=== PATIENT | male | born 1965 | race Caucasian/White ===

== ENCOUNTER 2017-07-06 08:41 | Observation (INO) ==
--- NOTE | 2017-07-06 09:06 | Emergency Department Note ---
Disposition Clinical Impression: Exposure to carbon monoxide Chest pain Qualifiers: Chest pain type: unspecified Qualified Code(s): R07.9 - Chest pain, unspecified Disposition: Admitted As Inpatient Condition: Fair Referrals: NONE,PCP [Primary Care Provider] - Catarino Ayoub [Family Provider] - Forms: ED Satisfaction Letter Time of Disposition: 11:15 General Adult HPI - General Chief complaint: ED Weakness Stated complaint: Weak, BL leg/arm numbness Time Seen by Provider: 07/06/17 08:44 Source: patient Limitations: no limitations Nursing Notes Reviewed: Yes Vital Signs Reviewed: Yes - History of Present Illness HPI Narrative: Alert and oriented nontoxic-appearing 52-year-old male presents for evaluation of generalized weakness, numbness and tingling of the bilateral upper and lower extremities, intermittent dizziness, and was intermittent but brief left-sided chest pain. Symptoms began abruptly at approximately 5:00 AM. He states that he has had intermittent episodes of left-sided chest pain that has been going on for the past 2 weeks however he had not disclose this to his significant other for any other medical professional. He denies any aggravating or alleviating factors for that chest pain. He describes it as sharp in nature and only lasts briefly. 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 He states that last week, his truck at a known exhaust leak that made the cabin smell strongly of exhaust fumes. He states that this has since been resolved and corrected. He states that he did buy a small carbon monoxide detector to place in the cab of his truck. He states that the carbon monoxide detector did begin to alarm around the time of symptom onset.. He denies any fever, chills, nausea, vomiting, abdominal pain, diaphoresis, headache. He does complain of intermittent episodes of blurred vision. He denies any injury or trauma. Pt Subjective Complaint: Dizziness, weakness, numbness and tingling of the upper and lower extremiti Pain Scale: 0 Improves with: nothing Worsens with: nothing Associated symptoms: Reports: chest pain, weakness. Denies: cough, diaphoresis , fever/chills, headaches, nausea/vomiting Treatments Prior to Arrival: none - Related Data Allergies Allergy/AdvReac Type Severity Reaction Status Date / Time No Known Allergies Allergy Verified 07/06/17 10:30 All systems ED: reviewed and negative except as stated. Review of Systems: As Per HPI Constitutional: Reports: as per HPI, weakness. Denies: fever, chills, weight change Eyes: Denies: eye pain, eye discharge, vision change ENT ED: Denies: ear pain, throat pain, dental pain, hearing loss, epistaxis, congestion, dysphagia Cardiovascular: Reports: as per HPI, chest pain. Denies: palpitations, dyspnea on exertion, edema, syncope Respiratory: Denies: cough, dyspnea, wheezes, hemoptysis, stridor Gastrointestinal: Denies: abdominal pain, nausea, vomiting, diarrhea, constipation, hematemesis, melena, hematochezia Genitourinary: Denies: urgency, dysuria, frequency, hematuria Musculoskeletal: Denies: back pain, neck pain, arthralgia, myalgia Integumentary: Denies: rash, abrasion, lesions Neurological: Reports: as per HPI, paresthesias. Denies: headache, weakness, numbness, confusion, abnormal gait, vertigo Psychiatric: Denies: anxiety, depression, suicidal thoughts, homicidal thoughts , auditory hallucinations, visual hallucinations Endocrine: Denies: fatigue Hematological/Lymphatic: Denies: easy bleeding, easy bruising Allergic/Immunologic: Denies: facial swelling, urticaria Past Medical History - Past Medical History Attestation: Yes The following information was validated with the patient. Source: patient, nursing notes reviewed Medical history: Reports: no medical history - Social History Smoking Status: Never smoker Physical Exam - General Limitations: no limitations General appearance: alert, in no apparent distress - Head Head exam: atraumatic, normocephalic, normal inspection - Eye Eye exam: Present: normal appearance, PERRL, EOMI. Absent: nystagmus - ENT ENT exam: mucous membranes moist - Neck Neck exam: Present: normal inspection, full ROM, trachea midline - Chest Chest inspection: Present: normal inspection, symmetric chest wall rise - Cardiovascular Cardiovascular exam: Present: regular rate, normal rhythm, normal heart sounds - Abdominal Exam Abdominal exam: Present: soft, Non-Tender, normal bowel sounds. Absent: tenderness, distention, guarding, rebound, rigidity - Extremities Exam Extremities exam: Present: normal inspection, full ROM. Absent: tenderness, pedal edema - Neurological Exam Neurological exam: Present: alert, oriented X3 - Expanded Neurological Exam Cranial nerves: EOM function (II, III, IV, ): Normal, facial sensation (V): Normal, facial palsy (VII): Normal, spinal accessory function (XI): Normal, tongue deviation (XII): Normal Cerebellar function: finger to nose: Normal, heel to cabrera: Normal Motor strength - LUE: 5/5 Motor strength - RUE: 5/5 Motor strength - LLE: 5/5 Motor strength - RLE: 5/5 Coma Scale Eye Opening: Spontaneous Coma Scale Motor Response: Obeys Commands Coma Scale Verbal Response: Oriented Coma Scale Total: 15 - Psychiatric Psychiatric exam: Present: normal affect, normal mood - Skin Skin exam: Present: warm, dry, intact, normal color Course Course Narrative: 1005: I spoke with the local poison control facility. Poison control recommends 100% oxygen by way of nonrebreather mask until carbon monoxide level is at least less than 10, preferably closer to the 5 Sunny she states the patient should not return to the truck until has been fully evaluated. Poison numerical control lathe operator states that he does not feel that the patient's carbon monoxide level was high enough to cause reactive involvement, as such evidenced by the patient's complaint of left-sided intermittent chest pain for the past 2 weeks. Poison numerical control lathe operator states that she feels that serial troponin testing is warranted in this patient's case. 1128: I spoke with Dr. Junior of the hospitalist services agreed to accept the patient under his services. - Reevaluation(s) Reevaluation #1: The patient states that he feels slightly improved from his initial presentation here after being placed on a nonrebreather mask. Carboxyhemoglobin level dropped from 13.1-11.9. Time: 11:14 Vital Signs Temperature 98.5 F 07/06/17 08:44 Pulse Rate 84 07/06/17 08:44 Respiratory Rate 18 07/06/17 08:44 Blood Pressure 146/113 07/06/17 08:44 O2 Sat by Pulse Oximetry 99 07/06/17 08:44 Temperature 98.5 F 07/06/17 08:44 Pulse Rate 83 07/06/17 09:08 Respiratory Rate 18 07/06/17 08:44 Blood Pressure 124/94 07/06/17 09:08 O2 Sat by Pulse Oximetry 99 07/06/17 08:44 Medical Decision Making - MDM Narrative Medical decision making narrative: The patient states that he did notice symptomatic improvement after exiting his truck, only for symptoms to return once he returned to it. I have discussed this patient's case with Dr. Orozco. Dr. Orozco has had a [id number] evaluation with the patient as well and agrees with the workup. Poison control did recommend serial troponin levels and admission for ACS rule out. I discussed this plan with Dr. Orozco and he agrees. - Medical Records Medical records reviewed: Yes I reviewed the patient's medical records. - Lab Data Lab results reviewed: Yes I reviewed the patient's lab results. Lab results narrative: Laboratory Last Values WBC 10.4 K/mcL (4.3-11.1) 07/06/17 09:00 RBC 5.50 M/mcL (4.19-5.50) 07/06/17 09:00 Hgb 17.7 g/dL (12.9-16.9) H 07/06/17 09:00 Hct 51.2 % (37.5-50.1) H 07/06/17 09:00 MCV 93.1 fL (83.0-100.0) 07/06/17 09:00 MCH 32.2 pg (28.0-33.3) 07/06/17 09:00 MCHC 34.6 g/dL (31.6-35.5) 07/06/17 09:00 RDW 14.2 % (11.5-14.5) 07/06/17 09:00 Plt Count 255 K/mcL (140-400) 07/06/17 09:00 MPV 10.0 fL (9.4-12.4) 07/06/17 09:00 Immature Gran % 0.3 % (0-4) 07/06/17 09:00 Seg Neutrophils % 68.6 % 07/06/17 09:00 Lymphocytes % 21.5 % 07/06/17 09:00 Monocytes % 8.1 % 07/06/17 09:00 Eosinophils % 1.2 % 07/06/17 09:00 Basophils % 0.3 % 07/06/17 09:00 Neutrophils # 7.1 K/mcL (1.6-8.9) 07/06/17 09:00 Lymphocytes # 2.2 K/mcL (0.6-4.6) 07/06/17 09:00 Monocytes # 0.8 K/mcL (0.0-1.3) 07/06/17 09:00 Eosinophils # 0.1 K/mcL (0.0-0.6) 07/06/17 09:00 Basophils # 0.0 K/mcL (0.0-0.2) 07/06/17 09:00 PT 11.1 Seconds (9.4-12.1) 07/06/17 09:00 INR 1.0 07/06/17 09:00 APTT 29.8 Seconds (26.0-36.0) 07/06/17 09:00 ABG pH 7.41 pH Units (7.32-7.45) 07/06/17 10:44 ABG pCO2 40 mmHg (35-45) 07/06/17 10:44 ABG pO2 103 mmHg (85-104) 07/06/17 10:44 ABG HCO3 25 mEq/L (21-27) 07/06/17 10:44 ABG Total CO2 27 mEq/L (20-26) H 07/06/17 10:44 ABG O2 Saturation 98 % (95-98) 07/06/17 10:44 ABG Base Excess 1 mEq/L (-2 to 3) 07/06/17 10:44 Carboxyhemoglobin 11.9 % (0-5) H 07/06/17 10:26 O2 Delivery Device Venti Mask 07/06/17 10:18 Inspired O2 24.0 (1-15=lpm [id number]=%) 07/06/17 10:18 Sodium 136 mEq/L (136-145) 07/06/17 09:00 Potassium 4.2 mEq/L (3.5-5.1) 07/06/17 09:00 Chloride 107 mEq/L (98-107) 07/06/17 09:00 Carbon Dioxide 24 mEq/L (23-29) 07/06/17 09:00 BUN 11 mg/dL (6-20) 07/06/17 09:00 Creatinine 0.78 mg/dL (0.70-1.30) 07/06/17 09:00 Est GFR ( Amer) > 60 (> 60) 07/06/17 09:00 Est GFR (Non-Af Amer) > 60 (> 60) 07/06/17 09:00 BUN/Creatinine Ratio 14 (6-26) 07/06/17 09:00 Glucose 126 mg/dL (70-105) H 07/06/17 09:00 Calculated Osmolality 283 (280-300) 07/06/17 09:00 Lactic Acid 0.9 mmol/L (0.5-2.2) 07/06/17 10:03 Calcium 8.9 mg/dL (8.6-10.3) 07/06/17 09:00 Phosphorus 3.2 mg/dL (2.7-4.5) 07/06/17 09:00 Magnesium 1.9 mg/dL (1.6-2.6) 07/06/17 09:00 Total Bilirubin 0.5 mg/dL (0.3-1.0) 07/06/17 09:00 AST 15 Units/L (13-39) 07/06/17 09:00 ALT 14 Units/L (7-52) 07/06/17 09:00 Alkaline Phosphatase 98 Units/L (34-104) 07/06/17 09:00 Creatine Kinase 87 Units/L (30-223) 07/06/17 10:03 Troponin I < 0.03 ng/mL (< 0.04) 07/06/17 09:00 Serum Total Protein 7.1 g/dL (6.4-8.9) 07/06/17 09:00 Albumin 3.9 g/dL (3.5-5.7) 07/06/17 09:00 Globulin 3.2 g/dL (2.4-3.5) 07/06/17 09:00 Albumin/Globulin Ratio 1.2 (1.1-2.2) 07/06/17 09:00 Result diagrams: 07/06/17 09:00 07/06/17 09:00 Lab Results 07/06/17 07/06/17 07/06/17 Range/Units 09:00 09:00 09:00 WBC 10.4 (4.3-11.1) K/mcL RBC 5.50 (4.19-5.50) M/mcL Hgb 17.7 H (12.9-16.9) g/dL Hct 51.2 H (37.5-50.1) % MCV 93.1 (83.0-100.0) fL MCH 32.2 (28.0-33.3) pg MCHC 34.6 (31.6-35.5) g/dL RDW 14.2 (11.5-14.5) % Plt Count 255 (140-400) K/mcL MPV 10.0 (9.4-12.4) fL Immature Gran % 0.3 (0-4) % Seg Neutrophils % 68.6 % Lymphocytes % 21.5 % Monocytes % 8.1 % Eosinophils % 1.2 % Basophils % 0.3 % Neutrophils # 7.1 (1.6-8.9) K/mcL Lymphocytes # 2.2 (0.6-4.6) K/mcL Monocytes # 0.8 (0.0-1.3) K/mcL Eosinophils # 0.1 (0.0-0.6) K/mcL Basophils # 0.0 (0.0-0.2) K/mcL PT 11.1 (9.4-12.1) Seconds INR 1.0 APTT 29.8 (26.0-36.0) Seconds ABG pH (7.32-7.45) pH Units ABG pCO2 (35-45) mmHg ABG pO2 (85-104) mmHg ABG HCO3 (21-27) mEq/L ABG Total CO2 (20-26) mEq/L ABG O2 Saturation (95-98) % ABG Base Excess (-2 to 3) mEq/L Carboxyhemoglobin (0-5) % O2 Delivery Device Inspired O2 (1-15=lpm [id number]=%) Sodium 136 (136-145) mEq/L Potassium 4.2 (3.5-5.1) mEq/L Chloride 107 (98-107) mEq/L Carbon Dioxide 24 (23-29) mEq/L BUN 11 (6-20) mg/dL Creatinine 0.78 (0.70-1.30) mg/dL Est GFR ( Amer) > 60 (> 60) Est GFR (Non-Af Amer) > 60 (> 60) BUN/Creatinine Ratio 14 (6-26) Glucose 126 H (70-105) mg/dL Calculated Osmolality 283 (280-300) Lactic Acid (0.5-2.2) mmol/L Calcium 8.9 (8.6-10.3) mg/dL Phosphorus 3.2 (2.7-4.5) mg/dL Magnesium 1.9 (1.6-2.6) mg/dL Total Bilirubin 0.5 (0.3-1.0) mg/dL AST 15 (13-39) Units/L ALT 14 (7-52) Units/L Alkaline Phosphatase 98 (34-104) Units/L Creatine Kinase (30-223) Units/L Troponin I (< 0.04) ng/mL Serum Total Protein 7.1 (6.4-8.9) g/dL Albumin 3.9 (3.5-5.7) g/dL Globulin 3.2 (2.4-3.5) g/dL Albumin/Globulin Ratio 1.2 (1.1-2.2) 07/06/17 07/06/17 07/06/17 Range/Units 09:00 09:00 10:03 WBC (4.3-11.1) K/mcL RBC (4.19-5.50) M/mcL Hgb (12.9-16.9) g/dL Hct (37.5-50.1) % MCV (83.0-100.0) fL MCH (28.0-33.3) pg MCHC (31.6-35.5) g/dL RDW (11.5-14.5) % Plt Count (140-400) K/mcL MPV (9.4-12.4) fL Immature Gran % (0-4) % Seg Neutrophils % % Lymphocytes % % Monocytes % % Eosinophils % % Basophils % % Neutrophils # (1.6-8.9) K/mcL Lymphocytes # (0.6-4.6) K/mcL Monocytes # (0.0-1.3) K/mcL Eosinophils # (0.0-0.6) K/mcL Basophils # (0.0-0.2) K/mcL PT (9.4-12.1) Seconds INR APTT (26.0-36.0) Seconds ABG pH (7.32-7.45) pH Units ABG pCO2 (35-45) mmHg ABG pO2 (85-104) mmHg ABG HCO3 (21-27) mEq/L ABG Total CO2 (20-26) mEq/L ABG O2 Saturation (95-98) % ABG Base Excess (-2 to 3) mEq/L Carboxyhemoglobin 13.1 H (0-5) % O2 Delivery Device Inspired O2 (1-15=lpm [id number]=%) Sodium (136-145) mEq/L Potassium (3.5-5.1) mEq/L Chloride (98-107) mEq/L Carbon Dioxide (23-29) mEq/L BUN (6-20) mg/dL Creatinine (0.70-1.30) mg/dL Est GFR ( Amer) (> 60) Est GFR (Non-Af Amer) (> 60) BUN/Creatinine Ratio (6-26) Glucose (70-105) mg/dL Calculated Osmolality (280-300) Lactic Acid 0.9 (0.5-2.2) mmol/L Calcium (8.6-10.3) mg/dL Phosphorus (2.7-4.5) mg/dL Magnesium (1.6-2.6) mg/dL Total Bilirubin (0.3-1.0) mg/dL AST (13-39) Units/L ALT (7-52) Units/L Alkaline Phosphatase (34-104) Units/L Creatine Kinase (30-223) Units/L Troponin I < 0.03 (< 0.04) ng/mL Serum Total Protein (6.4-8.9) g/dL Albumin (3.5-5.7) g/dL Globulin (2.4-3.5) g/dL Albumin/Globulin Ratio (1.1-2.2) 07/06/17 07/06/17 07/06/17 Range/Units 10:03 10:18 10:26 WBC (4.3-11.1) K/mcL RBC (4.19-5.50) M/mcL Hgb (12.9-16.9) g/dL Hct (37.5-50.1) % MCV (83.0-100.0) fL MCH (28.0-33.3) pg MCHC (31.6-35.5) g/dL RDW (11.5-14.5) % Plt Count (140-400) K/mcL MPV (9.4-12.4) fL Immature Gran % (0-4) % Seg Neutrophils % % Lymphocytes % % Monocytes % % Eosinophils % % Basophils % % Neutrophils # (1.6-8.9) K/mcL Lymphocytes # (0.6-4.6) K/mcL Monocytes # (0.0-1.3) K/mcL Eosinophils # (0.0-0.6) K/mcL Basophils # (0.0-0.2) K/mcL PT (9.4-12.1) Seconds INR APTT (26.0-36.0) Seconds ABG pH 7.41 (7.32-7.45) pH Units ABG pCO2 40 (35-45) mmHg ABG pO2 88 (85-104) mmHg ABG HCO3 26 (21-27) mEq/L ABG Total CO2 27 H (20-26) mEq/L ABG O2 Saturation 97 (95-98) % ABG Base Excess 1 (-2 to 3) mEq/L Carboxyhemoglobin 11.9 H (0-5) % O2 Delivery Device Venti Mask Inspired O2 24.0 (1-15=lpm ty00-554=%) Sodium (136-145) mEq/L Potassium (3.5-5.1) mEq/L Chloride (98-107) mEq/L Carbon Dioxide (23-29) mEq/L BUN (6-20) mg/dL Creatinine (0.70-1.30) mg/dL Est GFR ( Amer) (> 60) Est GFR (Non-Af Amer) (> 60) BUN/Creatinine Ratio (6-26) Glucose (70-105) mg/dL Calculated Osmolality (280-300) Lactic Acid (0.5-2.2) mmol/L Calcium (8.6-10.3) mg/dL Phosphorus (2.7-4.5) mg/dL Magnesium (1.6-2.6) mg/dL Total Bilirubin (0.3-1.0) mg/dL AST (13-39) Units/L ALT (7-52) Units/L Alkaline Phosphatase (34-104) Units/L Creatine Kinase 87 (30-223) Units/L Troponin I (< 0.04) ng/mL Serum Total Protein (6.4-8.9) g/dL Albumin (3.5-5.7) g/dL Globulin (2.4-3.5) g/dL Albumin/Globulin Ratio (1.1-2.2) 07/06/17 Range/Units 10:44 WBC (4.3-11.1) K/mcL RBC (4.19-5.50) M/mcL Hgb (12.9-16.9) g/dL Hct (37.5-50.1) % MCV (83.0-100.0) fL MCH (28.0-33.3) pg MCHC (31.6-35.5) g/dL RDW (11.5-14.5) % Plt Count (140-400) K/mcL MPV (9.4-12.4) fL Immature Gran % (0-4) % Seg Neutrophils % % Lymphocytes % % Monocytes % % Eosinophils % % Basophils % % Neutrophils # (1.6-8.9) K/mcL Lymphocytes # (0.6-4.6) K/mcL Monocytes # (0.0-1.3) K/mcL Eosinophils # (0.0-0.6) K/mcL Basophils # (0.0-0.2) K/mcL PT (9.4-12.1) Seconds INR APTT (26.0-36.0) Seconds ABG pH 7.41 (7.32-7.45) pH Units ABG pCO2 40 (35-45) mmHg ABG pO2 103 (85-104) mmHg ABG HCO3 25 (21-27) mEq/L ABG Total CO2 27 H (20-26) mEq/L ABG O2 Saturation 98 (95-98) % ABG Base Excess 1 (-2 to 3) mEq/L Carboxyhemoglobin (0-5) % O2 Delivery Device Inspired O2 (1-15=lpm [id number]=%) Sodium (136-145) mEq/L Potassium (3.5-5.1) mEq/L Chloride (98-107) mEq/L Carbon Dioxide (23-29) mEq/L BUN (6-20) mg/dL Creatinine (0.70-1.30) mg/dL Est GFR ( Amer) (> 60) Est GFR (Non-Af Amer) (> 60) BUN/Creatinine Ratio (6-26) Glucose (70-105) mg/dL Calculated Osmolality (280-300) Lactic Acid (0.5-2.2) mmol/L Calcium (8.6-10.3) mg/dL Phosphorus (2.7-4.5) mg/dL Magnesium (1.6-2.6) mg/dL Total Bilirubin (0.3-1.0) mg/dL AST (13-39) Units/L ALT (7-52) Units/L Alkaline Phosphatase (34-104) Units/L Creatine Kinase (30-223) Units/L Troponin I (< 0.04) ng/mL Serum Total Protein (6.4-8.9) g/dL Albumin (3.5-5.7) g/dL Globulin (2.4-3.5) g/dL Albumin/Globulin Ratio (1.1-2.2) - Radiology Data Radiology results reviewed: Yes I reviewed the patient's radiology results. Chest X-Ray 07/06/17 08:50 IMPRESSION: Mild cardiomegaly. No acute cardiopulmonary process. D/ / 07/06/2017 10:06:51 Isaiah Humphrey MD / dung Interpreting Provider: Isaiah Humphrey MD Head CT 07/06/17 08:50 IMPRESSION: No acute intracranial abnormality. D/ / Curly Muñiz MD / Curly Muñiz MD Interpreting Provider: Curly Muñiz MD - EKG Data EKG #1 EKG attestation: Yes I reviewed and interpreted this EKG. EKG results narrative: EKG reviewed by Dr. Orozco as well. EKG shows a sinus rhythm at a rate of 86 bpm. CA interval 125, QRS duration 117, QT/QTc interval 351/394. No ectopy noted. No STEMI. No significant changes when compared to an EKG dated from 16/05. Attestation Statement - Attestation Attestation: I, Papa Orozco DO have provided [id number] time during the care of this patient. Detailed review the presentation, symptoms, medical history were discussed and reviewed with the mid-level provider Awais Cervantes PA-C/ZANDER. Medical intervention labs and imaging studies were reviewed in detail. See full documentation of physical exam and course of care in the mid-level provider's note. I agree with the determined course of care, medical intervention and disposition put forth by the mid-level provider. See below documentation for changes or alterations in documentation. . 52-year-old male presents to the emergency room for evaluation of headache dizziness chest discomfort and generalized muscle aches. Patient's abdominal last 2 weeks. 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 Patient thought that it fixed this issue. He is a smoker. Has had carboxyhemoglobin initially was 13.1. Patient is placed on oxygen. Repeat was 11.2. Post contrast center was contacted secondary to the complaint of potential exposure. Patient also had intermittent symptoms of chest tightness and pain. Patient symptomatically is concerning for cardiac disease. Patient was having chest pressure. Patient had EKG chest x-ray and labs completed this time. Recommendations from poison control and possible admission for cardiac related or secondary to potential exposure versus hypoxia. Lengthy discussion was had with the patient the bedside. Patient's concern is electing to be admitted at this time. Consultation postoperative hospitals for definitive management. Patient is otherwise stable. No acute findings on EKG. Physical exam is unremarkable. Patient has no neurologic deficits. He has full range of motion in upper and lower extremities with no facial asymmetry. Cranial nerves III through XII are grossly intact. Lungs are clear heart is regular abdomen is soft. No acute issues noted during initial physical exam. Admission process will be completed at this time for acute coronary syndrome rule out and possible carbon monoxide exposure. See detailed documentation of the physical exam, medical intervention , medical decision-making and disposition in the mid-level provider's note. NIH Stroke Scale - Level of Consciousness LOC: Alert - LOC Questions LOC Questions: Answers both correctly - LOC Commands LOC Commands: Performs both correctly - Best Gaze Best Gaze: Normal - Visual Visual: No visual loss - Facial Palsy Facial Palsy: Normal - Motor Arms Motor Arm-Left: No drift for 10 seconds Motor Arm-Right: No drift for 10 seconds - Motor Legs Motor Leg-Left: No drift for 5 seconds Motor Leg-Right: No drift for 5 seconds - Limb Ataxia Limb Ataxia: Normal, No Ataxia - Sensory Sensory: Normal - Best Language Best Language: No aphasia - Dysarthria Dysarthria: Normal - Extinction and Inattention Extinction and Inattention: Normal - NIHSS Total Score NIHSS Total Score: 0
[2017-07-06 09:11] LABS: Basophils % 0.3 %; Eosinophils # 0.1 K/mcL (0.0-0.6); Eosinophils % 1.2 %; Hematocrit 51.2 % (37.5-50.1); Hemoglobin 17.7 g/dL (12.9-16.9); Immature Granulocytes % 0.3 % (0-4); Lymphocytes # 2.2 K/mcL (0.6-4.6); Lymphocytes % 21.5 %; Mean Corpuscular HGB Conc 34.6 g/dL (31.6-35.5); Mean Corpuscular Hemoglobin 32.2 pg (28.0-33.3); Mean Corpuscular Volume 93.1 fL (83.0-100.0); Monocytes # 0.8 K/mcL (0.0-1.3); Monocytes % 8.1 %; Neutrophils # 7.1 K/mcL (1.6-8.9); Platelet Count 255 K/mcL (140-400); Red Cell Distribution Width 14.2 % (11.5-14.5); Segmented Neutrophils % 68.6 %
[2017-07-06 09:15] LABS: Prothrombin Time 11.1 Seconds (9.4-12.1)
[2017-07-06 09:18] LABS: Activated Partial Thrombo Time 29.8 Seconds (26.0-36.0)
[2017-07-06 09:35] LABS: Alanine Aminotransferase 14 Units/L (7-52); Albumin 3.9 g/dL (3.5-5.7); Albumin/Globulin Ratio 1.2 (1.1-2.2); Alkaline Phosphatase 98 Units/L (34-104); Aspartate Amino Transferase 15 Units/L (13-39); BUN/Creatinine Ratio 14 (6-26); Bilirubin,Total 0.5 mg/dL (0.3-1.0); Blood Urea Nitrogen 11 mg/dL (6-20); Calcium 8.9 mg/dL (8.6-10.3); Carbon Dioxide 24 mEq/L (23-29); Chloride 107 mEq/L (98-107); Globulin 3.2 g/dL (2.4-3.5); Glucose 126 mg/dL (70-105); Magnesium 1.9 mg/dL (1.6-2.6); Osmolality,Calculated 283 (280-300); Phosphorous 3.2 mg/dL (2.7-4.5); Potassium 4.2 mEq/L (3.5-5.1); Sodium 136 mEq/L (136-145); Total Protein 7.1 g/dL (6.4-8.9); eGFR For African Americans > 60 (> 60); eGFR For Non-African Americans > 60 (> 60)
[2017-07-06 10:22] LABS: ABG Base Excess 1 mEq/L (-2 to 3); ABG HCO3 26 mEq/L (21-27); ABG Oxygen Saturation 97 % (95-98); ABG PCO2 40 mmHg (35-45); ABG PH 7.41 pH Units (7.32-7.45); ABG PO2 88 mmHg (85-104); ABG TCO2 27 mEq/L (20-26)
[2017-07-06 10:47] LABS: ABG Base Excess 1 mEq/L (-2 to 3); ABG HCO3 25 mEq/L (21-27); ABG Oxygen Saturation 98 % (95-98); ABG PCO2 40 mmHg (35-45); ABG PH 7.41 pH Units (7.32-7.45); ABG PO2 103 mmHg (85-104); ABG TCO2 27 mEq/L (20-26)
[2017-07-06] MEDS ORDERED: Aspirin 81 MG TAB.CHEW PO STA (11:19)
[2017-07-06] MEDS: Nitroglycerin 0.4 MG TAB.SUBL SL PRN ×2 (11:28→12:53)
[2017-07-06 11:34] LABS: Bilirubin,Urine Negative (Negative); Blood,Urine Negative (Negative); Clarity,Urine Clear (Clear); Color,Urine Yellow (Yellow); Glucose,Urine (UA) Normal (Normal); Ketones,Urine Negative (Negative); Leukocyte Esterase,Urine Negative (Negative); Nitrite,Urine Negative (Negative); Protein,Urine Negative (Neg-Trace); Specific Gravity,Urine 1.023 (1.010-1.025); Urobilinogen,Urine Normal (Normal)
[2017-07-06] MEDS ORDERED: Nitroglycerin 0.4 MG TAB.SUBL SL PRN (15:11)
--- NOTE | 2017-07-06 15:46 | Internal Med History&Physical ---
Date of Encounter: 07/06/17 Time of Encounter: 15:00 Assessment and Plan (1) Exposure to carbon monoxide Current visit: Yes Status: Acute Per poison control he is to be on a NRM at 100% O2 until his Carboxyhemoglobin is < 10 and ideally less than 5. Serial carboxyhemaglobin levels ordered q4 hrs until am. (2) Chest pain Current visit: Yes Status: Acute He has no personal history of CAD but has a strong family histroy of SCD at a young age (early 50s) in his father, and paternal GF. He had a stress test in [facility] about 7 yrs ago and was told it was normal. He smokes 2pcks of cigarets per day as well. Trend Troponins and continue telemetry Qualifiers: Chest pain type: precordial pain Qualified Code(s): R07.2 - Precordial pain (3) Tobacco abuse Current visit: Yes Status: Chronic Nicotine patch 21 mg @ppd smoker Counciled to stop Internal Medicine - H&P: HPI Chief complaint: CO exposure with cp and numbness/tingling arms and legs Admitted From: Emergency Dept Plans for Post Hospital Care: Home History of present illness: 52-year-old man presents in the ER c/o generalized weakness, numbness and tingling of the bilateral upper and lower extremities. He also had dizziness and left-sided chest pain. He states that he left-sided chest pain that has been going on for the past 2 weeks. His chest pain is sharp, non-radiating and lasting only a few minutes. 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 He bought a carbon monoxide detector to place in the cab of his truck and it was alarming when he had his symptoms today. Poison control was called and recommended 100 % O2 via NRB mask until carboxyhemaglobin less than 10%. His presenting level was >11%. Past Med Surg Social Fam HX - Past Medical History Medical history: no medical history Psychiatric history: no psych history - Past Surgical History Surgical History: no surgical history - Social History Smoking Status: Current every day smoker Packs per day: 2 Smokeless Tobacco Status: Yes Alcohol use: occasionally Drug use: none - Family History Father Adopted: [place]: [facility] Family Member Ethnicity: Non- Living Status: Age at : 51 Cause of : HEART ATTACK Hx Family Cardiac Disorders: Yes Hx Family Respiratory Disorders: No Hx Family Cancer: No Hx Family GI Disorders: No Hx Family Genitourinary Disorders: No Hx Family Endocrine Disorder: No Hx Family Musculoskeletal Disorders: No Hx Family Neuromuscular Disorders: No Hx Family Neurologic Disorders: No Hx Family HEENT Disorders: No Hx Family Autoimmune Disorders: No Hx Family Reproductive Disorders: No Hx Family Psychosocial Disorders: No Hx Family Medical Disorders: No Internal Medicine - H&P: Meds Aspirin [Lo-Dose Aspirin EC] 81 mg PO DAILY 07/06/17 [History] 3 Allergy/AdvReac Type Severity Reaction Status Date / Time No Known Allergies Allergy Verified 07/06/17 10:30 All Systems PM: A 10-system review of systems was performed and is negative for pertinent findings except as documented above in the HPI. - Constitutional Constitutional: fatigue, no anorexia, no chills, no excessive sweating, no fever (s), no falls, no lethargy, no night sweats, no weakness - EENT Eyes: no blurry vision, no diplopia, no discharge, no photophobia, no spots in vision, no tunnel vision Ears: no decreased hearing, no tinnitus Nose, mouth and throat: no dry mouth, no nasal congestion, no sinus pain, no sore throat, no throat swelling, no tongue swelling - Cardiovascular Cardiovascular ROS IM: chest pain, dyspnea, no diaphoresis - Respiratory Respiratory: no cough, no dyspnea, no pain with cough - Gastrointestinal Gastrointestinal: no abdominal pain, no dyspepsia, no dysphagia, no loose stools , no melena - Genitourinary Genitourinary ROS male: no flank pain, no urinary hesitancy, no urinary incontinence, no urinary urgency - Musculoskeletal Musculoskeletal ROS IM: no back pain, no muscle weakness, no numbness, no stiffness, no tingling - Integumentary Integumentary IM: no erythema, no rash, no skin ulcer, no jaundice - Neurological Neurological ROS: confusion, headache(s), numbness, paresthesias, no disequilibrium, no focal weakness, no frequent falls, no loss of vision, no tremor(s), no weakness - Psychiatric Psychiatric: no behavioral changes, no hallucinations, no panic attacks, no suicidal ideation - Constitutional Vitals: Temp Pulse Resp BP Pulse Ox 97.6 F 73 18 119/82 98 07/06/17 13:59 07/06/17 13:59 07/06/17 13:59 07/06/17 13:59 07/06/17 13:59 General appearance: Present: A&O X 3, pleasant, no acute distress - Head Head exam: Present: atraumatic, normocephalic - Eye Eye exam: Present: EOMI, normal appearance, PERRL, conjuntiva pink, sclera anicteric Pupils: Present: PERRL - Neck Neck exam general surgery: Present: supple, trachea midline. Absent: lymphadenopathy - Respiratory Respiratory exam: Present: CTAB. Absent: accessory muscle use, rales, rhonchi, wheezes - Cardiovascular Cardiovascular exam: Present: RRR, +S1, +S2. Absent: diastolic murmur, gallop, rubs, systolic murmur - GI/Abdominal GI/Abdominal exam: Present: normal bowel sounds, soft, no peritoneal signs. Absent: distended, firm, guarding, tenderness - Extremities Exam Extremities exam: Present: warm, radial pulses palpable and symmetrical. Absent : calf tenderness, cyanotic, pedal edema - Neurological Exam Neurological exam: Present: CN II-XII intact, oriented X3, no focal deficits. Absent: pronater drift, facial droop, speech deficit - Psychiatric Psychiatric exam: Present: normal affect, normal mood - Skin Skin exam: Present: dry, intact Internal Med - H&P Results - Labs CBC & Chem 7: 07/06/17 09:00 07/06/17 09:00
[2017-07-07 05:00] LABS: Basophils % 0.2 %; Eosinophils # 0.3 K/mcL (0.0-0.6); Eosinophils % 1.6 %; Hematocrit 51.5 % (37.5-50.1); Hemoglobin 17.3 g/dL (12.9-16.9); Immature Granulocytes % 0.3 % (0-4); Lymphocytes # 2.1 K/mcL (0.6-4.6); Lymphocytes % 12.1 %; Mean Corpuscular HGB Conc 33.6 g/dL (31.6-35.5); Mean Corpuscular Hemoglobin 31.7 pg (28.0-33.3); Mean Corpuscular Volume 94.5 fL (83.0-100.0); Mean Platelet Volume 10.2 fL (9.4-12.4); Monocytes # 1.1 K/mcL (0.0-1.3); Monocytes % 6.5 %; Neutrophils # 13.5 K/mcL (1.6-8.9); Platelet Count 228 K/mcL (140-400); Red Blood Count 5.45 M/mcL (4.19-5.50); Red Cell Distribution Width 14.2 % (11.5-14.5); Segmented Neutrophils % 79.3 %
[2017-07-07 05:11] LABS: Prothrombin Time 11.2 Seconds (9.4-12.1)
[2017-07-07 05:35] LABS: Alanine Aminotransferase 13 Units/L (7-52); Albumin 3.6 g/dL (3.5-5.7); Albumin/Globulin Ratio 1.2 (1.1-2.2); Alkaline Phosphatase 87 Units/L (34-104); Aspartate Amino Transferase 14 Units/L (13-39); BUN/Creatinine Ratio 13 (6-26); Bilirubin,Total 0.9 mg/dL (0.3-1.0); Blood Urea Nitrogen 12 mg/dL (6-20); Calcium 8.8 mg/dL (8.6-10.3); Carbon Dioxide 30 mEq/L (23-29); Chloride 105 mEq/L (98-107); Globulin 2.9 g/dL (2.4-3.5); Glucose 116 mg/dL (70-105); Magnesium 2.1 mg/dL (1.6-2.6); Osmolality,Calculated 291 (280-300); Potassium 4.6 mEq/L (3.5-5.1); Sodium 140 mEq/L (136-145); Total Protein 6.5 g/dL (6.4-8.9); eGFR For African Americans > 60 (> 60); eGFR For Non-African Americans > 60 (> 60)
[2017-07-07 07:58] VITALS: BP 102/77
--- NOTE | 2017-07-07 09:07 | Electrocardiograph Report ---
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
--- NOTE | 2017-07-07 10:49 | Internal Med Progress Note ---
Date of Encounter: 07/07/17 Time of Encounter: 10:44 - Constitutional Vitals: Temp Pulse Resp BP Pulse Ox 98.3 F 72 16 102/77 96 07/07/17 07:58 07/07/17 07:58 07/07/17 07:58 07/07/17 07:58 07/07/17 07:58 General appearance: Present: A&O X 3, pleasant, no acute distress Internal Medicine: Result - Labs CBC & Chem 7: 07/07/17 04:08 07/07/17 04:08 Labs: Short CBC 07/07/17 Range/Units 04:08 WBC 17.0 H D (4.3-11.1) K/mcL Hgb 17.3 H (12.9-16.9) g/dL Hct 51.5 H (37.5-50.1) % Plt Count 228 (140-400) K/mcL Neutrophils # 13.5 H (1.6-8.9) K/mcL BMP 07/07/17 04:08 Sodium 140 Potassium 4.6 Chloride 105 Carbon Dioxide 30 H BUN 12 Creatinine 0.93 Glucose 116 H Calcium 8.8 Cardiac Enzymes 07/06/17 07/07/17 07/07/17 Range/Units 15:48 00:06 04:08 Troponin I < 0.03 < 0.03 < 0.03 (< 0.04) ng/mL Liver Function 07/07/17 Range/Units 04:08 Total Bilirubin 0.9 (0.3-1.0) mg/dL AST 14 (13-39) Units/L ALT 13 (7-52) Units/L Alkaline Phosphatase 87 (34-104) Units/L Albumin 3.6 (3.5-5.7) g/dL - ABG Interpretation ABG results: ABG ABG pH 7.41 pH Units (7.32-7.45) 07/06/17 10:44 ABG pCO2 40 mmHg (35-45) 07/06/17 10:44 ABG pO2 103 mmHg (85-104) 07/06/17 10:44 ABG O2 Saturation 98 % (95-98) 07/06/17 10:44 PT/INR, D-dimer PT 11.2 Seconds (9.4-12.1) 07/07/17 04:08 Consult Discharge Plan - Plan Referrals: NONE,PCP [Primary Care Provider] - Catarino Ayoub [Family Provider] -
--- NOTE | 2017-07-07 11:08 | Discharge Summary ---
Date of Encounter: 07/07/17 Time of Encounter: 10:57 - Discharge Diagnosis (1) Exposure to carbon monoxide Priority: Primary Status: Acute (2) Chest pain Priority: Secondary Status: Acute Qualifiers: Chest pain type: precordial pain Qualified Code(s): R07.2 - Precordial pain (3) Tobacco abuse Priority: Secondary Status: Chronic - Discharge Medications Home Medications: Aspirin [Lo-Dose Aspirin EC] 81 mg PO DAILY 07/06/17 [History] Allergies/Adverse Reactions: 3 Allergy/AdvReac Type Severity Reaction Status Date / Time No Known Allergies Allergy Verified 07/06/17 10:30 Date of admission: 07/06/17 13:13 Primary care physician: PCP NONE Discharging clinician: Gage Junior - Patient Status Disposition: Home, Self-Care Condition: Fair Functional capacity at discharge: independent ambulation Overall status at discharge: patient is back to baseline - Discharge Instructions Follow Up With: Curt Dodd DO [Resident] - 07/09/17 3:20 pm NONE,PCP [Primary Care Provider] - Catarino Ayoub [Family Provider] - - Diet and Activity Activity: increase activity as tolerated Diet: advance to your usual diet Hospital course: Mr. Riley is a 52 year old male presents in the ER c/o generalized weakness, numbness and tingling of the bilateral upper and lower extremities. He also had dizziness and left-sided chest pain. He states that he left-sided chest pain that has been going on for the past 2 weeks. His chest pain is sharp, non- radiating and lasting only a few minutes, actually located in left costochondral region. 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 He bought a carbon monoxide detector to place in the cab of his truck and it was alarming when he had his symptoms today. Poison control was called and recommended 100 % O2 via NRB mask until carboxyhemaglobin less than 10%. His presenting level was >11%. Patient was continued on oxygen tehrapy and his Carboxyhemoglobin level normalized. Serial troponin were negative after being cycled. Based on patient clinical presentation this seems more consistent with musculoskelatal pain or pleuritis. He was discharged home in stable condition. Patient did have a leukocytosis that showed on following morning after admission going from 10k to 17k. Patient had no signs/symptoms of infection. He was hemodynamically stable and afebrile. Patient feels well and overall feels ready to go home. He agrees to get a repeat CBC tomorrow. He does not have a primary care physician so we arranged an appointment to establish care set for 2 days from today. He was discharged home in stable condition. Instructed that if he has fevers/chills, n /v, other signs of infection, he should go to urgent care center or emergency department. - He does have elevated glucose level. I suggest checking A1C at some point in case patient has diabetes or prediabetes. He has limited funding, so as of now I will have him get a CBC for tomorrow. - Time Spent with Patient Total time spent providing and/or coordinating discharge services: - Constitutional Vitals: Temp Pulse Resp BP Pulse Ox 98.3 F 72 16 102/77 96 07/07/17 07:58 07/07/17 07:58 07/07/17 07:58 07/07/17 07:58 07/07/17 07:58 General appearance: Present: A&O X 3, pleasant, no acute distress - Head Head exam: Present: atraumatic, normocephalic - Eye Eye exam: Present: PERRL, conjuntiva pink, sclera anicteric Pupils: Present: PERRL - Neck Neck exam general surgery: Present: supple, trachea midline. Absent: lymphadenopathy - Respiratory Respiratory exam: Present: CTAB. Absent: accessory muscle use, rales, rhonchi, wheezes - Cardiovascular Cardiovascular exam: Present: RRR, +S1, +S2. Absent: diastolic murmur, gallop, rubs, systolic murmur - GI/Abdominal GI/Abdominal exam: Present: normal bowel sounds, soft, no peritoneal signs. Absent: distended, tenderness - Extremities Exam Extremities exam: Present: warm, radial pulses palpable and symmetrical. Absent : calf tenderness, cyanotic, pedal edema - Neurological Exam Neurological exam: Present: CN II-XII intact, oriented X3, no focal deficits. Absent: pronater drift, facial droop, speech deficit - Skin Skin exam: Present: dry, intact
[2017-07-07] MEDS ORDERED: FLUARIX QUAD 2017-18 36MOS UP/PF 0.5 ML SYRINGE IM ONE (11:11)
== END 2017-07-07 11:58 | disposition home or self-care (01) ==
LOC: 2SOUTHHOLD 08:41 → EMEROO 08:41 → 2SOUTHHOLD 13:16
PROVIDERS: ADMIT Student in an Organized Health Care Education/Training Program; ATTEND Registered Nurse